=== PATIENT | male | born 1980 | race Caucasian/White ===

== ENCOUNTER 2019-10-25 17:44 | Emergency (ER) | payer OTHER, SELFPAY ==
[2019-10-25 18:17] VITALS: BP 135/71; PULSE 61; RESP 16; TEMP 36; O2SAT 100
--- NOTE | 2019-10-25 19:12 | ED.ABDPAIN ---
HPI - Abdominal Pain General Chief Complaint: Abdominal Pain Stated Complaint: Left side abd pain Time Seen by Provider: 10/25/19 19:13 Source: patient Mode of arrival: ambulatory Limitations: no limitations History of Present Illness HPI narrative: Alexandre June is a 39 yo male with smoking hx, who comes with LUQ pain. In the last 24 hours the pain is gotten worse, he made himself vomit. States that when he has been laying down feels a little bit better but he has felt drowsy most of the day. 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 Related Data Allergies Allergy/AdvReac Type Severity Reaction Status Date / Time Penicillins Allergy Mild RASH Verified 06/26/10 19:54 Review of Systems Review of Systems: Narrative: CONSTITUTIONAL: Denies fever, chills, sweats. EYES: Denies visual changes, redness, discharge. ENT: Denies rhinorrhea, congestion, sore throat, otalgia. CARDIOVASCULAR: Denies chest pain, palpitations, edema. RESPIRATORY: Denies dyspnea, wheezing, cough GASTROINTESTINAL: has abdominal pain, nausea, vomiting, diarrhea. GENITOURINARY: Denies dysuria, hematuria, abnormal discharge SKIN: Denies rash or itching. NEUROLOGIC: Denies numbness, or focal weakness. PSYCHIATRIC: Denies anxiety or depression. PMFSH Family History Family History Other Hypertension Social History Social History Smoking status: Current every day smoker Alcohol intake: former Comments At time of signature, I agree with nursing past medical, surgical, social and family history. There is no relevant family history pertinent to the presenting complaint. Exam Narrative: Exam Narrative: GENERAL: This is a well-nourished, well-developed patient, in mild distress. HEAD: normocephalic, atraumatic. EYES: Sclera clear/white. Vision is grossly intact. EARS: External ears normal,. Hearing grossly intact. NOSE: External nose normal without nasal discharge, nares without redness, no rhinorrhea. THROAT: Mucous membranes moist, posterior pharynx NECK: Neck supple, non-tender CARDIOVASCULAR: Regular rate and rhythm without murmurs, gallops, or rubs. RESPIRATORY: Clear to auscultation. Breath sounds equal bilaterally. No wheezes, rales, or rhonchi. GASTROINTESTINAL: Abdomen soft, non-tender, good bowel sounds, LUQ is not tender to palpation SKIN: warm, intact with no suspicious lesions or rash, good texture and turgor. NEURO: awake, alert, and oriented to person, place and time. There were no obvious focal neurologic abnormalities. Steady gait EXTREMITIES: Normal range of motion. BACK: Nontender without deformity Course Course Emergency Course: Started on Protonix and [id number] options with patient and agreed that he should try softer foods no carbonated beverages or alcohol, pain worsens or develops fever nausea vomiting to go to the ER Vital Signs Vital signs: Vital Signs Temperature 96.8 F L 10/25/19 18:17 Pulse Rate 61 10/25/19 18:17 Respiratory Rate 16 10/25/19 18:17 Blood Pressure 135/71 10/25/19 18:17 Pulse Oximetry 100 10/25/19 18:17 Temperature 96.8 F L 10/25/19 18:17 Pulse Rate 61 10/25/19 18:17 Respiratory Rate 16 10/25/19 18:17 Blood Pressure 135/71 10/25/19 18:17 Pulse Oximetry 100 10/25/19 18:17 MDM - Abdominal Pain Differential Diagnosis Differential diagnosis: Likely abdominal pain, constipation, gastroenteritis and pancreatitis Discharge Plan Discharge Clinical Impression: Abdominal pain Qualifiers: Abdominal location: left upper quadrant Qualified Code(s): R10.12 - Left upper quadrant pain Patient Disposition: Home, Self-Care Condition: Stable Instructions: Abdominal Pain (ED) Additional Instructions: Patient understands that he is to go to the ER for blood work a
== END 2019-10-25 19:27 | disposition home or self-care (01) ==
PROVIDERS: Emergency Provider Nurse Practitioner; PCP Family Medicine Adolescent Medicine
DX: R10.12 Left upper quadrant pain (principal); F17.200 Nicotine dependence, unspecified, uncomplicated
CPT/HCPCS: 99213; G0463

== ENCOUNTER 2020-07-03 15:29 | Outpatient (CLI) | payer OTHER, SELFPAY ==
--- NOTE | 2020-07-03 15:31 | ECG_ITS ---
Measurements Intervals [place] Rate: 72 P: 63 [place]: 150 QRS: 17 QRSD: 105 T: 28 QT: 371 QTc: 406 Interpretive Statements SINUS RHYTHM WITH SINUS ARRHYTHMIA INCOMPLETE RIGHT BUNDLE BRANCH BLOCK BORDERLINE ECG Electronically Signed On 07-03-2020 16:25:57 GAME ENGINEER by Tamir Puga D.O.
== END 2020-07-03 15:30 | disposition home or self-care (01) ==
PROVIDERS: PCP Family Medicine Adolescent Medicine; Visit Provider Surgery
DX: Z01.818 Encounter for other preprocedural examination (principal); K42.0 Umbilical hernia with obstruction, without gangrene; Z72.0 Tobacco use; I45.10 Unspecified right bundle-branch block
CPT/HCPCS: 36415; 86850; 86900; 86901; 93005

== ENCOUNTER 2020-07-06 01:30 | Outpatient (CLI) | payer OTHER, SELFPAY ==
[2020-07-06 19:31] LABS: SARS-CoV-2 RNA PCR Negative
== END 2020-07-06 01:31 | disposition home or self-care (01) ==
LOC: ANHCOVIDDT 01:30
PROVIDERS: PCP Family Medicine Adolescent Medicine; Visit Provider Surgery
DX: Z01.812 Encounter for preprocedural laboratory examination (principal); Z11.59 Encounter for screening for other viral diseases
CPT/HCPCS: 87635; C9803; U0003

== ENCOUNTER 2020-07-10 00:21 | Day surgery (SDC) | payer OTHER, SELFPAY ==
[2020-07-01 14:54] VITALS: BMI 33.3
--- NOTE | 2020-07-08 13:54 | WPDANESEPPF ---
Anes - Initial Pre Proc Eval Procedure: Operation Date: 07/10/20 09:00 Proposed Procedures p Robotic Assisted Laparoscopic Incarcerated Umbilical Hernia Repair With Mesh - Evelia Jo MD Date/Time: 07/08/20 13:54 Surgeon: Evelia Jo MD Pre Op Diagnosis: Incarcerated Umbilical Hernia Patient Data Age: 39 Gender: M Height: 1.78 m Weight: 105.2 kg Allergies Allergy/AdvReac Type Severity Reaction Status Date / Time Penicillins Allergy Mild RASH Verified 07/10/20 07:36 Home Medications Medication Instructions Recorded Confirmed Type No Home Medications 06/17/20 07/10/20 History Patient hx anesthesia problems: none Family hx anesthesia problems: none PMFSH Past Medical History Medical History (Updated 07/08/20 @ 13:55 by Pepito Munroe MD) BMI 36.0-36.9,adult Tobacco abuse Umbilical hernia with obstruction, without gangrene Surgical History Surgical History History of appendectomy History of nasal surgery Family History Family History Other Hypertension Social History Social History Smoking packs per day: 1 Smoking cigarettes per day: 20.0 Years smoked: 23 Smoking pack-years: 23.00 Smoking status: Current every day smoker Tobacco type: cigarettes Alcohol intake: current Substance use: unknown Living arrangements: with family 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 Questions were solicited and answers provided to the satisfaction of the patient/family/POA.
[2020-07-10] VITALS (10 sets, daily range): BP systolic 103–121; BP diastolic 59–85; PULSE 65–78; RESP 12–20; TEMP 36.2–36.4; O2SAT 92–100
--- NOTE | 2020-07-10 07:22 | WPDHPUPDATE1 ---
History and Physical Update Update Date/Time: 07/10/20 07:22 History and Physical has been reviewed, including an updated exam of the patient. There are NO changes in the patient's condition. Risks, benefits, and alternatives have been discussed and questions answered. Patient agrees to proceed with procedure.
[2020-07-10] MEDS: ACETAMINOPHEN 500 MG TABLET 1000 MG PO (07:40)
[2020-07-10] MEDS: LACTATED RINGERS 1,000 ML 30 ML IV CONT ×2 (07:50→11:23)
[2020-07-10] MEDS: KETOROLAC 15 MG/ML VIAL (*BKC) IV PUSH (07:59)
--- NOTE | 2020-07-10 08:28 | SUR.PREOP ---
0825-UP TO BR TO VOID.
[2020-07-10] MEDS: ceFAZolin 2 GM/D5W 50 ML 2 GM/50 ML BAG IVPB (08:50)
[2020-07-10] MEDS: BUPIVACAINE HCL 0.5% PF 30 ML VIAL INFILTRATE (09:43)
--- NOTE | 2020-07-10 11:16 | P.OP_ITS ---
Procedure Note - Detailed Date of procedure: 07/10/20 Pre-op diagnosis: Incarcerated Umbilical Hernia incarcerated periumbilical ventral hernia Post-op diagnosis: same Procedure performed: robotic assisted repair of incarcerated periumbilical ventral hernia with 15 x 10 cm symbotex mesh in underlay position Description of procedure: The patient was taken the operating room placed in the supine position. After adequate induction of general anesthesia, the patient was prepped and draped in normal sterile fashion. A time-out was then done to verify the patient's identity as well as the procedure being performed. I began by making a 12 mm incision in the left upper quadrant. Through this, a Veress needle was placed into the peritoneal cavity and CO2 gas was insufflated. After adequate pneumoperitoneum was achieved, a 12 mm trocar was placed through this incision. I then placed the laparoscope through this trocar site and under direct visualization I placed a 8 mm port in the left mid abdomen as well as an additional 8 mm port in the left lower abdomen. The robot was then docked to the 3 port sites. I then went to the robotic console. I began by identifying the hernia. A moderate-sized incarcerated hernia was noted in the periumbilical region. Using graspers, I was able to reduce this hernia. The hernia was noted to just contain preperitoneal fat. Once reduced, I also reduced and dissected out the hernia sac. I then closed the approximately 3 cm defect with 0 strata fix suture. I then placed a 15 x 10 cm symbotex mesh into the abdominal cavity. The Vicryl stitch was placed in the middle of the mesh and brought up centering the mesh over the defect. Once this was done, I used 2 0 V lock suture x 2 to circumferentially suture the mesh to the abdominal. Once the mesh was comple tely sutured in, I was happy with our tension-free repair. The mesh was noted to have good overlap of the defect. At this point, the robot was undocked and all ports were removed. I then closed the 12 mm port site with an 0 Vicryl [id number] suture at the fascial level. All port sites were then closed with 4 O Monocryl subcuticular suture. The patient tolerated the procedure well, is extubated in the operating room postoperative, OB transferred to the recovery room in stable condition. Anesthesia: GETA Surgeon: Evelia Jo MD Estimated blood loss (mL): 10 Drains: No Packing: No Pathology: none sent Complications: No immediate complications Condition: stable Disposition: PACU Findings: incarcerated periumbilical ventral hernia containing fat
[2020-07-10] MEDS: fentaNYL CITRATE INJ (*CRX) 100 MCG/2 ML VIAL 25 MCG IV PUSH ×8 (11:42→11:56)
[2020-07-10] MEDS: HYDROmorphone HCL INJ (*CRX) 1 MG/ML SYR 0.25 MG IV PUSH ×4 (12:02→12:17)
[2020-07-10] MEDS: oxyCODONE HCL (*CRX) 5 MG TAB IR PO (12:53)
== END 2020-07-10 13:35 | disposition home or self-care (01) ==
PROVIDERS: PCP Family Medicine Adolescent Medicine; Visit Provider Surgery
PROC: (CPT 49653; principal; 2020-07-10 09:00)
DX: K42.0 Umbilical hernia with obstruction, without gangrene (principal); F17.210 Nicotine dependence, cigarettes, uncomplicated; E66.9 Obesity, unspecified; Z68.33 Body mass index [BMI] 33.0-33.9, adult
CPT/HCPCS: 49653; S2900; 36415; 86850; 86900; 86901; 93005; A9270; C1781; C9803; J0690; J1100; J1170; J1885; J2250; J2405; J2704; J2710; J3010; J7030; J7120; U0003

== ENCOUNTER 2022-08-06 16:29 | Emergency (ER) | payer OTHER, SELFPAY ==
--- NOTE | ~2022-08-06 | CT_ITS ---
EXAMINATION: CT abdomen pelvis w con DATE: 08/06/2022 18:12 INDICATION: Bloody stools. Abdomen pain. Vomiting. TECHNIQUE: Computed tomography (CT) of the abdomen and pelvis was performed with 100 cc Omnipaque 350 intravenous contrast. The dose-length product was 841.19 mGy-cm. Automated exposure control and iter ative reconstruction technique were employed. COMPARISON: None. FINDINGS: Lung bases are unremarkable. Heart size normal. No significant pleural or pericardial effus ion. No significant vascular abnormality. No lymphadenopathy. Fatty infiltration of the liver. The spleen, pancreas, adrenal glands and kidneys are unremarkable. G allbladder is present. No free air or free fluid. There are mildly prominent mesenteric lymph nodes, likely reactive. Nonobstructive bowel pattern. There are likely changes of appendectomy. No abnormal pelvic masses or fluid collections. No acute osseous abnormality. There are changes of previous ventr al hernia repair. IMPRESSION: 1. No acute abdominal abnormality. Reviewed, dictated and finalized at location A. ET RESEARCH COORDINATOR
[2022-08-06 16:42] VITALS: BP 124/68; PULSE 64; RESP 16; TEMP 36.6; O2SAT 100
--- NOTE | 2022-08-06 17:27 | ED.ABDPAIN ---
HPI - Abdominal Pain General Chief Complaint: Abdominal Pain Stated Complaint: abd pain Time Seen by Provider: 08/06/22 16:39 History of Present Illness HPI narrative: 42-year-old male with a history of umbilical hernia status postrepair (2020) here for evaluation of nausea, vomiting and epigastric abdominal pain for the past day. Patient states he has been unable to tolerate any p.o. today and has been vomiting yellow emesis. Notes a epigastric burning sensation after he vomits that has gotten worse throughout the day. Denies blood in his vomit but does note that he had some blood mixed in his stool this morning, none since. He does not take blood thinners. Denies frequent alcohol use but does take NSAIDs daily. No fevers, chills, chest pain, shortness of breath. He has never had a colonoscopy. Related Data Allergies Allergy/AdvReac Type Severity Reaction Status Date / Time Penicillins Allergy Mild RASH Verified 10/07/21 13:59 Review of Systems Review of Systems: Gen.: Denies fevers or chills Eyes: Denies eye pain or visual change ENT: Denies congestion Respiratory: Denies shortness of breath or cough CV: Denies chest pain or palpitations GI: Reports abdominal pain, nausea, vomiting, blood in stool denies burning, urgency, frequency or hematuria Musculoskeletal: Denies back pain or muscle pain Neuro: Denies numbness, tingling, weakness or focal weakness Skin: Denies rash Except as documented, all other systems reviewed and negative [facility] Past Medical History Medical History BMI 36.0-36.9,adult Tobacco abuse Umbilical hernia with obstruction, without gangrene Surgical History Surgical History History of appendectomy History of nasal surgery History of ventral hernia repair 07/10/2020 robotic assisted repair of incarcerated periumbilical ventral hernia with 15 x 10 cm symbotex mesh in underlay position Family History Family History (Updated 10/07/21 @ 14:01 by Allyson Mckenzie MA) Mother Diabetes mellitus Other Hypertension Social History Social History Smoking packs per day: 1 Smoking cigarettes per day: 20.0 Years smoked: 23 Smoking pack-years: 23.00 Smoking status: Current every day smoker Tobacco type: cigarettes Alcohol intake: current Substance use: unknown Living arrangements: with family Occupation/Education: occupation 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 Head: Normocephalic and atraumatic. EYES: PERRLA/EOMI, conjunctivae clear NOSE: No nasal drainage EARS: External ear normal in appearance THROAT: Oropharynx is clear. Mucous membranes are moist. NECK: Supple. No adenopathy, no masses. RESPIRATORY: Airway patent, respirations nonlabored. Clear to auscultation bilaterally, no rales, rhonchi, wheezing. CARDIOVASCULAR: Regular rate and rhythm without murmurs, rubs, or gallops. : no gross blood in stool; no hemorrhoid noted ABDOMINAL: Normoactive bowel sounds. Soft, nontender, nondistended. No rebound tenderness or guarding. MUSCULOSKELETAL: Extremities are warm and well-perfused. Moves all extremities well. No edema. NEURO: Normal speech. No focal neurologic deficits. SKIN: Skin is warm and dry. No rashes. PSYCHIATRIC: Normal affect/mood. Procedures Stool Hemoccult Stool hemoccult #1: Stool Hemoccult Date: 08/06/22 Stool Hemoccult Time: 17:40 Procedural Steps Taken: stool placed in appropriate test area and developer placed on stool and control areas Hemoccult result: positive Course Vital Signs Vital signs: Vital Signs Temperature 97.9 F 08/06/22 16:42 Puls
[2022-08-06 17:45] LABS: Basophils Percent Auto 0.2 % (0.2-1.2); Eosinophils Absolute Auto 0.1 K/mm3 (0-0.3); Eosinophils Percent Auto 0.7 % (0-4.4); Hematocrit 43.4 % (42.0-52.0); Hemoglobin 14.1 g/dL (14.0-18.0); Immature Granulocyte Absolute 0.06 K/mm3 (0.00-0.031); Immature Granulocyte Percent A 0.7 % (0-0.5); Lymphocytes Absolute Auto 1.62 K/mm3 (0.9-3.2); Lymphocytes Percent Auto 18.5 % (18.3-44.2); Mean Corpuscular HGB Conc 32.5 g/dl (32-36); Mean Corpuscular Hemoglobin 29.2 pg (26-34); Mean Corpuscular Volume 89.9 fl (80-100); Monocytes Absolute Auto 0.4 K/mm3 (0.1-0.6); Monocytes Percent Auto 4.9 % (2.6-8.5); Neutrophils Absolute Auto 6.6 K/mm3 (1.3-6.7); Platelet Count Result 286 k/mm3 (150-375); Red Blood Count 4.83 M/mm3 (4.6-6.20); Red Cell Distribution Width 13.3 % (11.5-14.5); White Blood Count 8.8 K/mm3 (4.5-10.0)
[2022-08-06 17:58] LABS: Alanine Aminotransferase 36 U/L (6-50); Albumin Level 4.7 g/dL (3.5-5.1); Alkaline Phosphatase 109 U/L (38-126); Anion Gap 5 mmol/L (8-16); Aspartate Amino Transferase 27 U/L (17-59); Bilirubin,Total 0.9 mg/dL (0.2-1.3); Blood Urea Nitrogen 13 mg/dL (9-20); Calcium 9.3 mg/dL (8.4-10.2); Carbon Dioxide 31 mmol/L (22-30); Chloride 100 mmol/L (98-107); Estimated CRCL calculation 124 ml/min; Estimated Glomerular Filt Rate > 60; Glucose 106 mg/dL (65-110); Lipase 120 U/L (23-300); Potassium 4.4 mmol/L (3.4-5.0); Sodium 136 mmol/L (137-145)
[2022-08-06] MEDS: ONDANSETRON INJ 4 MG/2 ML VIAL IV PUSH (18:25)
[2022-08-06] MEDS: FAMOTIDINE 20 MG/2 ML VIAL IV PUSH (18:25)
[2022-08-06] MEDS: LACTATED RINGERS 1,000 ML 999 ML IV CONT (18:26)
[2022-08-06 19:16] VITALS: BP 131/62; PULSE 69; RESP 18; O2SAT 98
[2022-08-06 19:59] VITALS: BP 133/80; PULSE 64; RESP 16; O2SAT 100
== END 2022-08-06 20:00 | disposition home or self-care (01) ==
PROVIDERS: Emergency Provider Physician Assistant; PCP Family Medicine Adolescent Medicine
DX: K29.70 Gastritis, unspecified, without bleeding (principal); F17.210 Nicotine dependence, cigarettes, uncomplicated; R19.5 Other fecal abnormalities
CPT/HCPCS: 36415; 74177; 80053; 83690; 85025; 96361; 96374; 96375; 99284; J0131; J2405; J7120; Q9967

== ENCOUNTER 2022-11-02 00:27 | Day surgery (SDC) | payer OTHER, SELFPAY ==
[2022-10-26 10:48] VITALS: BMI 31.9
--- NOTE | 2022-10-31 10:57 | PM.HPGS ---
History of Present Illness History of Present Illness Consent: Risks, benefits, and alternatives have been discussed and questions answered. Patient agrees to proceed with procedure. Chief complaint: N&V, abdominal distension Narrative: Alexandre June is a 42 year old male Who is referred?for evaluation of GERD. He presented to [facility] with c/o nausea, vomiting and bloating back in July. CT scan with?Fatty infiltration of the liver and mildly prominent mesenteric lymph nodes, likely reactive. The spleen, pancreas, adrenal glands and kidneys are unremarkable. Lipase was normal.?He took omeprazole OTC initially for 2 weeks with improvement in symptoms. Symptoms returned once he stopped it. Eventually started on Pantoprazole 40 MG BID and was doing well until a few weeks ago when he developed epigastric bloating with nausea and vomiting again. States he ate steak prior to both occurrences. Prior to the episode in July he was taking Ibuprofen frequently.? Review of Systems Review of Systems: All systems reviewed & are unremarkable except as noted in HPI and below PMFSH Past Medical History Medical History Bloating BMI 36.0-36.9,adult GERD (gastroesophageal reflux disease) Nausea and vomiting Obese Tobacco abuse Umbilical hernia with obstruction, without gangrene Surgical History Surgical History History of appendectomy History of nasal surgery History of ventral hernia repair 07/10/2020 robotic assisted repair of incarcerated periumbilical ventral hernia with 15 x 10 cm symbotex mesh in underlay position Family History Family History Mother Diabetes mellitus Sibling , Age 47 from PE. 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 Gender identity (if verbalized by the patient): Male Spiritual care concerns: No Meds Home Medications and Allergies Home Medications Medication Instructions Recorded Confirmed Type pantoprazole 40 mg tablet,delayed 40 mg PO DAILY 1 month #30 tabs 10/08/22 11/02/22 Rx release Allergies Allergy/AdvReac Type Severity Reaction Status Date / Time Penicillins Allergy Mild RASH Verified 11/02/22 13:06 Exam Const: General: alert Orientation/consciousness: patient oriented x3 Resp: Auscultation: clear to auscultation bilaterally Cardio: Rhythm: regular rhythm GI: GI Palp: Yes Soft to palpation and No Tenderness to palpation present (GI) Neuro: General: patient oriented x3 Assessment and Plan Assessment and plan (1) Nausea and vomiting: Code(s): R11.2 - Nausea with vomiting, unspecified Status: Acute Assessment and Plan: EGD with possible biopsy or dilatation or cautery.
--- NOTE | 2022-11-02 08:20 | P.PNAN_ITS ---
Anes - Initial Pre Proc Eval Procedure: Operation Date: 11/02/22 14:15 Proposed Procedures p Esophagogastroduodenoscopy - Jesus Lazaro MD Date/Time: 11/02/22 08:20 Surgeon: Jesus Lazrao MD Pre Op Diagnosis: N&V, abdominal distension Patient Data Age: 42 Gender: M Height: 1.8 m Weight: 104 kg Allergies Allergy/AdvReac Type Severity Reaction Status Date / Time Penicillins Allergy Mild RASH Verified 11/02/22 13:06 Home Medications Medication Instructions Recorded Confirmed Type pantoprazole 40 mg tablet,delayed 40 mg PO DAILY 1 month #30 tabs 10/08/22 11/02/22 Rx release Patient hx anesthesia problems: none Family hx anesthesia problems: none Results Review: All pre-operative results and documents have been reviewed as part of the pre- operative evaluation. [facility] Past Medical History Medical History Bloating BMI 36.0-36.9,adult GERD (gastroesophageal reflux disease) Nausea and vomiting Obese Tobacco abuse Umbilical hernia with obstruction, without gangrene Surgical History Surgical History History of appendectomy History of nasal surgery History of ventral hernia repair 07/10/2020 robotic assisted repair of incarcerated periumbilical ventral hernia with 15 x 10 cm symbotex mesh in underlay position Family History Family History Mother Diabetes mellitus Sibling , Age 47 from PE. 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 Informed Consent: The patient's anesthetic plan and its attendant risks and benefits were discussed with the patient/family/POA. Questions were solicited and answers provided to the satisfaction of the patient/family/POA.
[2022-11-02 13:08] VITALS: BP 135/79; PULSE 71; RESP 18; TEMP 36.6; O2SAT 100
[2022-11-02] MEDS: LACTATED RINGERS 1,000 ML 150 ML IV CONT (13:24)
[2022-11-02 14:05] VITALS: BP 115/65; PULSE 81; RESP 19; O2SAT 97
[2022-11-02 14:15] VITALS: BP 114/62; PULSE 68; RESP 16; O2SAT 100
[2022-11-02 14:25] VITALS: BP 121/67; PULSE 62; RESP 18; O2SAT 99
== END 2022-11-02 14:35 | disposition home or self-care (01) ==
PROVIDERS: PCP Family Medicine Adolescent Medicine; Visit Provider Internal Medicine Gastroenterology
PROC: 0DJ08ZZ Inspection of Upper Intestinal Tract, Via Natural or Artificial Opening Endoscopic (ICD-10-PCS; CPT 43235; principal; 2022-11-02 14:15)
DX: K21.9 Gastro-esophageal reflux disease without esophagitis (principal); F17.210 Nicotine dependence, cigarettes, uncomplicated; E66.9 Obesity, unspecified; Z68.31 Body mass index [BMI] 31.0-31.9, adult
CPT/HCPCS: 43235; J2704; J7120

== ENCOUNTER 2022-11-10 09:56 | Outpatient (CLI) | payer OTHER, SELFPAY ==
--- NOTE | ~2022-11-10 | US_ITS ---
Abdominal Sonogram: Real-time sonographic imaging of the abdomen was performed. Clinical History: Nausea and vomiting Findings: The liver appears normal with no evidence of mass lesion or bile duct dilatation. Main por benji vein demonstrates normal direction of flow. The spleen is normal in size without evidence of foca l lesion. The gallbladder is well distended, and appears normal with no evidence of gallstone or wal l thickening. The common bile duct measures 4 mm. The visualized pancreas, aorta, and IVC are unrema rkable. The right kidney measures 11.2 cm in length and the left kidney measures 11.0 cm. There is no hydronephrosis or renal calculus. Impression: Unremarkable abdominal ultrasound. Reviewed, dictated and finalized at location . Impression: Unremarkable abdominal ultrasound.
== END 2022-11-10 09:57 | disposition home or self-care (01) ==
PROVIDERS: PCP Family Medicine Adolescent Medicine; Visit Provider Internal Medicine Gastroenterology
DX: R11.2 Nausea with vomiting, unspecified (principal)
CPT/HCPCS: 76700

== ENCOUNTER 2023-05-24 01:03 | Day surgery (SDC) | payer OTHER, SELFPAY ==
[2023-05-11 13:55] VITALS: BMI 32.4
--- NOTE | 2023-05-21 09:23 | SUR.PREOP ---
Patient called regarding upcoming procedure. Message left on patient's voicemail regarding preop instructions, appointment times, and procedure prep.
--- NOTE | 2023-05-23 11:03 | PM.HPGS ---
History of Present Illness History of Present Illness Consent: Risks, benefits, and alternatives have been discussed and questions answered. Patient agrees to proceed with procedure. Chief complaint: melena Narrative: Alexandre June is a 42 year old male referred for Colonoscopy because of melena. in November and again in March he passed a bloody stool. On either occasion did he have any abdominal or rectal pain. He was not straining. Review of Systems Review of Systems: All systems reviewed & are unremarkable except as noted in HPI and below PMFSH Past Medical History Medical History Bloating BMI 36.0-36.9,adult GERD (gastroesophageal reflux disease) Hematochezia Nausea and vomiting Obese Tobacco abuse Umbilical hernia with obstruction, without gangrene Surgical History Surgical History History of appendectomy History of nasal surgery History of ventral hernia repair 07/10/2020 robotic assisted repair of incarcerated periumbilical ventral hernia with 15 x 10 cm symbotex mesh in underlay position Family History Family History Mother Diabetes mellitus Sibling , Age 47 from PE. 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 Gender identity (if verbalized by the patient): Male Spiritual care concerns: No Meds Home Medications and Allergies Home Medications Medication Instructions Recorded Confirmed Type No Home Medications 05/11/23 05/24/23 History Allergies Allergy/AdvReac Type Severity Reaction Status Date / Time Penicillins Allergy Mild RASH Verified 05/24/23 10:11 Exam Resp: Auscultation: clear to auscultation bilaterally Cardio: Rate: regular rate Rhythm: regular rhythm GI: GI Palp: Yes Soft to palpation and No Tenderness to palpation present (GI) Assessment and Plan Assessment and plan (1) Hematochezia: Code(s): K92.1 - Melena Status: Acute Assessment and Plan: Colonoscopy with possible biopsy or polypectomy or cautery or injection of substances.
[2023-05-24 10:12] VITALS: BP 125/82; PULSE 86; RESP 20; TEMP 36.2; O2SAT 100
[2023-05-24] MEDS: LACTATED RINGERS 1,000 ML 150 ML IV CONT (10:15)
--- NOTE | 2023-05-24 10:58 | WPDANESEPPF ---
Anes - Initial Pre Proc Eval Procedure: Operation Date: 05/24/23 11:30 Proposed Procedures p Colonoscopy - Jesus Lazaro MD Date/Time: 05/24/23 10:58 Surgeon: Jesus Lazaro MD Pre Op Diagnosis: melena Patient Data Age: 42 Gender: M Height: 1.78 m Weight: 102.7 kg Last Vital Signs Temp 97.1 F L 05/24/23 10:12 Pulse 86 05/24/23 10:12 Resp 20 05/24/23 10:12 BP 125/82 05/24/23 10:12 Pulse Ox 100 05/24/23 10:12 O2 Del Method Room Air 05/24/23 10:12 Allergies Allergy/AdvReac Type Severity Reaction Status Date / Time Penicillins Allergy Mild RASH Verified 05/24/23 10:11 Home Medications Medication Instructions Recorded Confirmed Type No Home Medications 05/11/23 05/24/23 History Patient hx anesthesia problems: none Family hx anesthesia problems: none Results Review: All pre-operative results and documents have been reviewed as part of the pre-operative evaluation. [facility] Past Medical History Medical History Bloating BMI 36.0-36.9,adult GERD (gastroesophageal reflux disease) Hematochezia Nausea and vomiting Obese Tobacco abuse Umbilical hernia with obstruction, without gangrene Surgical History Surgical History History of appendectomy History of nasal surgery History of ventral hernia repair 07/10/2020 robotic assisted repair of incarcerated periumbilical ventral hernia with 15 x 10 cm symbotex mesh in underlay position Family History Family History Mother Diabetes mellitus Sibling , Age 47 from PE. 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 Informed Consent: The patient's anesthetic plan and its attendant risks and benefits were discussed with the patient/family/POA. Questions were solicited and answers provided to the satisfaction of the patient/family/POA.
--- NOTE | 2023-05-24 11:19 | SUR.OPER ---
1110 iv found to be infultrated in right ac removed, catheter intact. iv restarted with 22 gauge iv in left ac.
[2023-05-24 11:29] VITALS: BP 110/59; PULSE 73; RESP 18; O2SAT 97
[2023-05-24 11:39] VITALS: BP 106/54; PULSE 70; RESP 20; O2SAT 99
[2023-05-24 11:49] VITALS: BP 103/59; PULSE 64; RESP 24; O2SAT 100
== END 2023-05-24 11:52 | disposition home or self-care (01) ==
PROVIDERS: PCP Family Medicine Adolescent Medicine; Visit Provider Internal Medicine Gastroenterology
PROC: 0DJD8ZZ Inspection of Lower Intestinal Tract, Via Natural or Artificial Opening Endoscopic (ICD-10-PCS; CPT 45378; principal; 2023-05-24 11:30)
DX: K63.5 Polyp of colon (principal); K64.8 Other hemorrhoids; K21.9 Gastro-esophageal reflux disease without esophagitis; F17.210 Nicotine dependence, cigarettes, uncomplicated; E66.9 Obesity, unspecified; Z68.32 Body mass index [BMI] 32.0-32.9, adult
CPT/HCPCS: 45385; 88305; J2704; J7120